=== PATIENT | female | born 1955 | race African-American/Black ===

== ENCOUNTER 2023-12-20 00:02 | Inpatient (IN) | payer MEDICARE, BC ==
[~2023-12-20] VITALS: Ht 172.7 cm; Wt 43.6 kg
[2023-12-20 00:30] LABS: Basophils # (auto) 0.1 10 ^3/uL (0-0.2); Basophils % (auto) 0.6 % (0.0-2.0); Eosinophils # (auto) 0.2 10 ^3/uL (0-0.8); Eosinophils % (auto) 1.5 % (0.0-7.0); Hematocrit 39.2 % (36.0-46.0); Hemoglobin 12.5 g/dL (12.2-16.2); Lymphocytes # (auto) 2.4 10 ^3/uL (0.4-5.4); Lymphocytes % (auto) 16.7 % (10.0-50.0); Mean Corpuscular Hemoglobin 28.5 pg (28.0-32.0); Mean Corpuscular Hgb Conc. 31.8 g/dL (32.0-36.0); Mean Corpuscular Volume 89.6 fL (80.0-100.0); Monocytes # (auto) 0.9 10 ^3/uL (0-1.3); Monocytes % (auto) 6.3 % (0.0-12.0); Neutrophils # (auto) 10.9 10 ^3/uL (1.6-8.6); Neutrophils % (auto) 74.9 % (37.0-80.0); Red Blood Cells 4.37 10^6/uL (4.0-5.20); Red Cell Distribution Width 14.2 % (11.8-14.3); White Blood Cell 14.5 10^3/uL (4.4-10.8)
[2023-12-20 00:37] LABS: Chloride 104 mmol/L (98-107); Potassium 3.6 mmol/L (3.5-5.1); Sodium 140 mmol/L (136-145)
[2023-12-20 00:38] LABS: Anion Gap 11 (5-15); Calcium 10.1 mg/dL (8.7-10.4); Carbon Dioxide 25 mmol/L (20-30)
[2023-12-20 00:43] LABS: Blood Urea Nitrogen 13 mg/dL (9-23); Glucose 208 mg/dL (74-106)
[2023-12-20 03:15] LABS: Lactic Acid w/Reflex 2.8 mmol/L (0.4-2.0)
[2023-12-20] MEDS: SODIUM CHLORIDE 0.9% 1,000 ML IV ONE ×2 (03:21→05:13)
[2023-12-20] MEDS: metroNIDAZOLE 500MG/100ML 100 ML IV ONE (03:23)
[2023-12-20] MEDS: ONDANSETRON HCL 4 MG/2 ML VIAL IV ONE (03:23)
[2023-12-20] MEDS: MORPHINE SULFATE 4 MG/ML SYR/VIAL IV ONE (03:23)
[2023-12-20] MEDS ORDERED: hydrALAZINE HCL 20 MG/ML VL IV PRN (04:15)
[2023-12-20] MEDS ORDERED: NITROGLYCERIN 0.4 MG SL TAB SL PRN (04:15)
[2023-12-20] MEDS ORDERED: DOCUSATE SOD 100 MG CAP PO PRN (04:15)
[2023-12-20] MEDS ORDERED: ACETAMINOPHEN 325 MG TAB PO PRN (04:15)
[2023-12-20] MEDS ORDERED: DEXTROSE (50%) 50ML SYRG IV PRN (04:15)
[2023-12-20] MEDS ORDERED: ONDANSETRON HCL 4 MG/2 ML VIAL IV PRN (04:15)
[2023-12-20] MEDS ORDERED: MORPHINE SULFATE INJ 2 MG/ml SYRG IV PRN ×2 (04:15)
[2023-12-20 04:51] VITALS: PULSE 82; RESP 16; O2SAT 96
[2023-12-20 05:08] LABS: Basophils # (auto) 0 10 ^3/uL (0-0.2); Basophils % (auto) 0.2 % (0.0-2.0); Eosinophils # (auto) 0 10 ^3/uL (0-0.8); Eosinophils % (auto) 0.1 % (0.0-7.0); Hemoglobin 12.9 g/dL (12.2-16.2); Lymphocytes # (auto) 0.6 10 ^3/uL (0.4-5.4); Lymphocytes % (auto) 4.2 % (10.0-50.0); Mean Corpuscular Hemoglobin 28.4 pg (28.0-32.0); Mean Corpuscular Hgb Conc. 31.4 g/dL (32.0-36.0); Mean Corpuscular Volume 90.5 fL (80.0-100.0); Monocytes # (auto) 0.3 10 ^3/uL (0-1.3); Monocytes % (auto) 2.5 % (0.0-12.0); Neutrophils # (auto) 12.9 10 ^3/uL (1.6-8.6); Red Blood Cells 4.53 10^6/uL (4.0-5.20); Red Cell Distribution Width 14.5 % (11.8-14.3); White Blood Cell 13.9 10^3/uL (4.4-10.8)
[2023-12-20 05:22] LABS: Alanine Aminotransferase 16 U/L (7-40); Albumin 4.8 g/dL (3.2-4.8); Alkaline Phosphatase 88 U/L (46-116); Anion Gap 13 (5-15); Aspartate Aminotransferase 19 U/L (13-40); BUN/Creatinine Ratio 10.1 (10.0-20.0); Blood Urea Nitrogen 14 mg/dL (9-23); Calcium 9.6 mg/dL (8.5-10.1); Carbon Dioxide 24 mmol/L (20-30); Chloride 103 mmol/L (98-107); Glucose 295 mg/dL (74-106); Potassium 3.6 mmol/L (3.5-5.1); Sodium 140 mmol/L (136-145)
[2023-12-20] MEDS: HYDROcodone-ACET 5/325MG TAB PO PRN (05:22)
[2023-12-20 05:23] LABS: Bilirubin, Total 0.9 mg/dL (0.2-1.0); Total Protein 7.6 g/dL (5.7-8.2)
[2023-12-20] MEDS: metroNIDAZOLE 500MG/100ML 100 ML IV SCH (05:42)
[2023-12-20] MEDS: ACCU-CHEK COMFORT CURVE STRIP VI SCH (05:58)
[2023-12-20] MEDS: InsuLIN REG 1unit/0.01ml Soln (100units/ml) SC SCH (06:01)
[2023-12-20] MEDS: FAMOTIDINE (10MG/ML) 2ML VL IV SCH (09:53)
[2023-12-20 11:53] LABS: Urine Bacteria FEW /hpf (None Seen); Urine Blood Negative /uL (Negative); Urine Clarity HAZY (Clear); Urine Color Colorless (Yellow); Urine Protein, UAD 1+ (Negative); Urine Specific Gravity 1.016 (1.001-1.035); Urine Urobilinogen Normal (Negative); Urine WBC 7 /hpf (0 - 5); Urine pH 5.5 (5.0-9.0)
[2023-12-20] MEDS: cefTRIAXone 1GM/50ML D5W 50 ML IV ONE (14:44)
[2023-12-20] MEDS: SODIUM CHLORIDE 0.9% 1,000 ML IV SCH (17:55)
[2023-12-20 23:47] VITALS: PULSE 71; RESP 18; O2SAT 96
[2023-12-21 01:00] VITALS: BP 112/58; PULSE 76; RESP 17; TEMP 98; O2SAT 96
[2023-12-21] MEDS ORDERED: GLIM4TAB42 PO (02:58)
[2023-12-21] MEDS ORDERED: HYDR25TA5 PO (02:58)
[2023-12-21] MEDS ORDERED: ROSU10TA16 PO (02:58)
[2023-12-21] MEDS ORDERED: VALS320T PO (02:58)
[2023-12-21] MEDS ORDERED: METF-370 PO (02:58)
[2023-12-21] MEDS ORDERED: AMLO1TAB22 PO (02:58)
[2023-12-21 05:00] VITALS: BP 137/68; PULSE 67; RESP 18; TEMP 98.3; O2SAT 95
[2023-12-21 06:13] LABS: Basophils # (auto) 0.1 10 ^3/uL (0-0.2); Basophils % (auto) 1.2 % (0.0-2.0); Eosinophils # (auto) 0.2 10 ^3/uL (0-0.8); Eosinophils % (auto) 2.5 % (0.0-7.0); Hematocrit 38.3 % (36.0-46.0); Hemoglobin 12.2 g/dL (12.2-16.2); Lymphocytes # (auto) 1.9 10 ^3/uL (0.4-5.4); Lymphocytes % (auto) 21.3 % (10.0-50.0); Mean Corpuscular Hemoglobin 28.4 pg (28.0-32.0); Mean Corpuscular Hgb Conc. 31.8 g/dL (32.0-36.0); Mean Corpuscular Volume 89.2 fL (80.0-100.0); Monocytes # (auto) 0.6 10 ^3/uL (0-1.3); Monocytes % (auto) 6.7 % (0.0-12.0); Neutrophils # (auto) 6.1 10 ^3/uL (1.6-8.6); Neutrophils % (auto) 68.3 % (37.0-80.0); Nucleated Red Blood Cells % 0.1 %; Red Blood Cells 4.29 10^6/uL (4.0-5.20); Red Cell Distribution Width 14.3 % (11.8-14.3); White Blood Cell 8.9 10^3/uL (4.4-10.8)
[2023-12-21 06:32] LABS: Partial Thromboplastin Time 24.2 SEC (24.5-34.5); Prothrombin Time 10.5 sec (9.3-11.8)
[2023-12-21 06:33] LABS: Alanine Aminotransferase 13 U/L (7-40); Albumin 4.2 g/dL (3.2-4.8); Alkaline Phosphatase 74 U/L (46-116); Anion Gap 7 (5-15); Aspartate Aminotransferase 16 U/L (13-40); BUN/Creatinine Ratio 7.8 (10.0-20.0); Bilirubin, Total 1.1 mg/dL (0.2-1.0); Blood Urea Nitrogen 9 mg/dL (9-23); Calcium 9.1 mg/dL (8.5-10.1); Carbon Dioxide 27 mmol/L (20-30); Chloride 108 mmol/L (98-107); Glucose 128 mg/dL (74-106); Potassium 3.7 mmol/L (3.5-5.1); Sodium 142 mmol/L (136-145); Total Protein 7.1 g/dL (5.7-8.2)
[2023-12-21 07:30] VITALS: PULSE 67; RESP 18; O2SAT 95
[2023-12-21 08:45] VITALS: BP 126/88; PULSE 66; RESP 17; TEMP 97.6; O2SAT 98
[2023-12-21] MEDS: cefTRIAXone 1GM/50ML D5W 50 ML IV SCH (09:38)
[2023-12-21] MEDS ORDERED: MET500T PO (12:00)
[2023-12-21] MEDS ORDERED: LEVO500T91 PO (12:00)
[2023-12-21 12:51] VITALS: BP 132/77; PULSE 63; RESP 16; TEMP 98; O2SAT 95
[2023-12-21] MEDS ORDERED: METF-929 PO (13:49)
[2023-12-21 14:03] VITALS: BP 137/68; PULSE 67; RESP 18; TEMP 36.7; O2SAT 95
[2023-12-23 09:28] LABS: Hepatitis B Core Total AB Negative (Negative)
[2023-12-23 11:46] LABS: Hepatitis A Total Antibody Negative (Negative); Hepatitis B Surface Antibody Negative (Negative); Hepatitis B Surface Antigen Negative (Negative); Hepatitis C Antibody Negative (Negative)
== END 2023-12-21 16:20 | disposition home or self-care (01) | DRG 444 ==
LOC: ER 00:02 → OVERFLOW 04:12 → WEST WING 22:20
PROVIDERS: ADMIT Nurse Practitioner Family; ATTEND Internal Medicine
DX: K80.00 Calculus of gallbladder with acute cholecystitis without obstruction (principal); N17.0 Acute kidney failure with tubular necrosis; E87.20 Acidosis, unspecified; Z68.41 Body mass index [BMI] 40.0-44.9, adult; K52.9 Noninfective gastroenteritis and colitis, unspecified; E11.65 Type 2 diabetes mellitus with hyperglycemia; I10 Essential (primary) hypertension; D72.829 Elevated white blood cell count, unspecified; E66.01 Morbid (severe) obesity due to excess calories; N20.0 Calculus of kidney; K57.30 Diverticulosis of large intestine without perforation or abscess without bleeding; K76.0 Fatty (change of) liver, not elsewhere classified; Z88.0 Allergy status to penicillin
CPT/HCPCS: 36415; 71045; 74176; 76705; 80048; 80053; 81001; 82105; 82378; 82962; 83036; 83605; 83690; 84484; 85025; 85610; 85730; 86301; 86704; 86706; 86708; 86803; 87040; 87086; 87340; 93005; 96361; 96365; 96367; 96375; G0378; J1815; J2405; J3490